=== PATIENT | female | born 1950 | race Caucasian/White ===

== ENCOUNTER 2018-06-13 10:03 | Outpatient (CLI) | payer MEDICARE ==
[~2018-06-13 10:03] MED LIST: ATOR40TA3 PO; BUTA1TAB52 PO; HYDR-4353 PO; HYDR12.5 PO; LISI40TA4 PO; METO50TA16 PO; OMEP20CA4 PO; PARO-62 PO; TIZA4TAB11 PO
[2018-06-13 10:53] LABS: BASOPHILS # (AUTO) 0.1 X10'3 (0-0.2); BASOPHILS % (AUTO) 1.7 % (0-1); EOSINOPHILS # (AUTO) 0.3 X10'3 (0-0.9); EOSINOPHILS % (AUTO) 3.7 % (0-6); HEMATOCRIT 44.3 % (35.0-45.0); HEMOGLOBIN 14.6 g/dl (12.0-16.0); LYMPHOCYTES # (AUTO) 2.7 X10'3 (1.1-4.8); LYMPHOCYTES % (AUTO) 39.8 % (21-51); MEAN CORPUSCULAR HEMOGLOBIN 31.3 PG (27.0-31.0); MEAN CORPUSCULAR HGB CONC 33.1 % (33.0-36.5); MEAN CORPUSCULAR VOLUME 94.5 FL (78-98); MEAN PLATELET VOLUME 7.7 FL (7.4-10.4); MONOCYTES # (AUTO) 0.5 X10'3 (0-0.9); MONOCYTES % (AUTO) 7.8 % (2-12); NEUTROPHILS # (AUTO) 3.2 X10'3 (1.8-7.7); PLATELET COUNT 251 X10'3 (140-440); RED BLOOD COUNT 4.69 X10'6 (4.20-5.60); RED CELL DISTRIBUTION WIDTH 13.9 % (11.5-14.5); WHITE BLOOD COUNT 6.9 X10'3 (4.5-11.0)
[2018-06-13 11:04] LABS: CLARITY,URINE CLEAR (Clear); COLOR,URINE STRAW (Yellow); GLUCOSE, URINE NEGATIVE (Neg); KETONES,URINE NEGATIVE (Neg); LEUKOCYTE ESTERASE ,URINE NEGATIVE (Neg); NITRITES, URINE NEGATIVE (Neg); OCCULT BLOOD,URINE MODERATE (Neg); PROTEIN,URINE NEGATIVE (Neg); UROBILINOGEN,URINE 0.2 E.U/dL (0.2-1.0)
[2018-06-13 11:05] LABS: UA COLLECTION TYPE CLN CATCH MIDSTREAM
[2018-06-13 11:11] LABS: ALANINE AMINOTRANSFERASE 25 U/L (12-78); ALBUMIN 3.8 G/DL (3.4-5.0); ALBUMIN/GLOBULIN RATIO 1.3 (1.1-1.5); ALKALINE PHOSPHATASE 81 IU/L (46-116); ANION GAP 7 (8-16); ASPARTATE AMINO TRANSFERASE 14 U/L (10-37); BILIRUBIN,TOTAL 0.3 MG/DL (0.1-1.0); BLOOD UREA NITROGEN 14 MG/DL (7-18); BUN/CREATININE RATIO 16.3 (6.6-38.0); CALCIUM 8.8 MG/DL (8.5-10.1); CHLORIDE 99 MMOL/L (99-107); CREATININE 0.86 MG/DL (0.40-0.90); GLUCOSE 101 MG/DL (70-104); POTASSIUM 4.2 MMOL/L (3.5-5.1); SODIUM 135 MMOL/L (135-145); TOTAL CARBON DIOXIDE 29.3 MMOL/L (24-32); TOTAL PROTEIN 6.7 G/DL (6.4-8.2); eGFR 66 ML/MIN
[2018-06-13 11:15] LABS: BACTERIA,URINE 1+ /HPF (Neg); SQUAMOUS EPITHELIAL CELL,UR FEW /LPF (FEW)
[2018-06-13 11:16] LABS: WBC,URINE 0-4 /HPF (0-4)
== END 2018-06-13 23:59 | disposition home or self-care (01) ==
LOC: LAB 10:03
PROVIDERS: ATTEND Obstetrics & Gynecology
DX: N39.0 Urinary tract infection, site not specified (principal); R31.9 Hematuria, unspecified; F17.200 Nicotine dependence, unspecified, uncomplicated; I10 Essential (primary) hypertension; Z79.899 Other long term (current) drug therapy; Z90.710 Acquired absence of both cervix and uterus
CPT/HCPCS: 36415; 80053; 81001; 85025; 88108

== ENCOUNTER 2018-06-20 09:50 | Outpatient (CLI) | payer MEDICARE ==
[2018-06-20] MEDS ORDERED: iohexol 300mg/ml 100ml inj. ONE (10:23)
== END 2018-06-20 23:59 | disposition home or self-care (01) ==
LOC: 64 CT 09:50
PROVIDERS: ATTEND Obstetrics & Gynecology
DX: K57.30 Diverticulosis of large intestine without perforation or abscess without bleeding (principal); N20.0 Calculus of kidney; M43.8X6 Other specified deforming dorsopathies, lumbar region; I70.0 Atherosclerosis of aorta; I10 Essential (primary) hypertension; F17.200 Nicotine dependence, unspecified, uncomplicated; Z90.710 Acquired absence of both cervix and uterus; Z79.899 Other long term (current) drug therapy
CPT/HCPCS: 74178; Q9967

== ENCOUNTER 2023-08-22 09:33 | Outpatient (CLI) | payer MEDICARE, BC ==
[~2023-08-22 09:33] MED LIST changes: +ATOR-411 PO; -ATOR40TA3 PO; +LISI40TA13 PO; -LISI40TA4 PO; +PARO-141 PO; -PARO-62 PO; +iohexol 350MG/ML 100ml bottle IV ONE
== END 2023-08-22 23:59 | disposition home or self-care (01) ==
LOC: RAD 09:33
PROVIDERS: ATTEND Nurse Practitioner Family
DX: I65.23 Occlusion and stenosis of bilateral carotid arteries (principal); I10 Essential (primary) hypertension; I70.203 Unspecified atherosclerosis of native arteries of extremities, bilateral legs; I70.1 Atherosclerosis of renal artery; E78.5 Hyperlipidemia, unspecified; I77.811 Abdominal aortic ectasia; F17.290 Nicotine dependence, other tobacco product, uncomplicated
CPT/HCPCS: 70498; J3490; Q9967